=== PATIENT | female | born 1945 | race Caucasian/White ===

== ENCOUNTER 2019-06-03 14:28 | Emergency (ER) | payer OTHER ==
--- NOTE | ~2019-06-03 | CN ---
PATIENT NAME:MILAGROS WASHINGTON MEDICAL RECORD: [id number] : 43 LOCATION:[facility] ADMIT DATE: ACCOUNT: [id number] CONSULTING PHYSICIAN: KAJAL ABRAHAM MD REFERRING PHYSICIAN: TOM LUCIO MD DATE OF CONSULTATION: 06/03/2019 HISTORY OF PRESENT ILLNESS: Ms. Washington is a 74-year-old female about 2-1/2 hours status post a fall onto a brick surface. I was called. She had a CT sustained a large right facial laceration on the right eye and an open right orbital fracture, all that was visualized on the CT was some subcutaneous air. On talking to the patient, really does not have much complaints. She says it was hurting earlier, but the pain has gone away. No visual problems. She can still open her eyes spontaneously, looking at her, had to look in to all different gaze, her vision is normal and no double vision in any field of gaze. No problems with her occlusion or with her teeth. No nasal obstruction or epistaxis, just the right cheek swelling and some pain. PAST MEDICAL HISTORY: Reviewed from the chart. PHYSICAL EXAMINATION: GENERAL: She has a right periorbital ecchymosis. HEENT: Eye is swollen just about shut, but she can with a little help open it up, so I can see her pupil, sclerae, and conjunctivae are normal. Pupils are equal and reactive. She has grossly normal vision, did not feel there is any abnormality. Extraocular movements are intact. No diplopia in any field of gaze. On palpation of her face, everything is normal in nose. The midface is stable. She has got tenderness on the lateral orbital rim on the right side. She had a large wide open laceration under the right eye with malar prominence in the inferior lateral orbital rim exposed. The facial nerve function is intact. EARS: Canals and TMs are normal. NOSE: No mass, polyps or drainage. Septum is intact, relatively straight. No hematoma. ORAL CAVITY AND OROPHARYNX: Does not have any trismus. Midface is stable. Jaw opens symmetrically. NECK: No masses, no adenopathy. I reviewed her CT and she has got this fracture. The orbital flow is intact though, just a little slightly depressed lateral orbital rim fracture with a couple of bone fragments there. The air is just from the lateral laceration. There is no obvious communication to the sinus tract. This is just lateral orbit and orbital contents and globe appear normal. I do not see any other fractures. PROCEDURE: Repair of the laceration, cleaned the area with Betadine and irrigated it out, palpated it carefully for any foreign bodies. It was all clean. The orbital rim felt intact. Really could not feel there was bone fragments there on the medial surface of the orbit, I did not generally explore that. They are not obviously causing any problem. I closed the wound interruptedly with subcutaneous 3-0 Vicryl deep and then the subcutaneous layers were closed with interrupted subcutaneous 5-0 Vicryl and the skin was closed with a combination of running and interrupted 5-0 Prolene. She tolerated all that well. CONSULT REPORT [id number] MILAGROS WASHINGTON IMPRESSION: Right facial laceration repaired and right orbital fracture, it is minimal. She got some bone fragments, but it does not appear to be giving her any trouble, the floor is intact. I do not think this is going to need surgical treatment. She will see me back in the clinic in 1 week for suture removal. She has already received some IV antibiotics, she can get some Keflex p.o. until then and she has a wrist fracture and it needs to be taken care of as well. The ER is arranging that and I will check her eye again next week when she is in. TRANSINT:[id number] Voice Confirmation ID: [id number] DOCUMENT ID: [id number] KAJAL ABRAHAM MD CC: [id number] DICTATION DATE: 06/03/19 175 HOME MANAGER: 06/04/19 0204 [facility] 06/03/19 [facility] [address] [place] [address]
[2019-06-03 14:31] VITALS: Wt 72.7 kg
[2019-06-03 15:47] LABS: BASOPHILS 0.2 % (0-2); EOSINOPHILS 1.4 % (0-7); HEMATOCRIT 37.8 % (36.0-48.0); HEMOGLOBIN 12.8 g/dL (12-16); IMMATURE GRANULOCYTES 0.2 % (0-5); LYMPHOCYTES 16.9 % (15-50); MCH 33.4 pg (26.0-34.0); MCHC 33.9 g/dL (31.0-37.0); MCV 98.7 fL (80.0-100.0); MEAN PLATELET VOLUME 9.6 fL (7.4-10.4); MONOCYTES 9.8 % (2-11); NEUTROPHILS 71.5 % (40-80); PLATELET COUNT 202 10x3/uL (130-400); RBC 3.83 10x6/uL (4.00-5.40); RDW 12.5 % (11.5-14.5); WBC 4.9 10x3/uL (4.8-10.8)
[2019-06-03 15:57] LABS: APTT 27.8 SECONDS (22.8-39.4); CALC OSMOLALITY 285 mosm/kg (275-300); CARBON DIOXIDE 32.2 mmol/L (21.0-32.0); CHLORIDE - SERUM 104 mmol/L (98-107); CREATININE - SERUM 0.7 mg/dL (0.6-1.3); GLUCOSE 112 mg/dL (74-106); INR 0.9 (0.85-1.17); PROTIME 12.1 SECONDS (11.6-15.0); SODIUM 142 mmol/L (136-145); UREA NITROGEN 17 mg/dL (7-18); eGFR NON AFRICAN AMERICAN 86 mL/min (90-120)
[2019-06-03 16:03] LABS: ALBUMIN 3.4 g/dL (3.4-5.0); ALKALINE PHOSPHATASE 60 U/L (46-116); ALT (SGPT) 26 U/L (10-68); BILIRUBIN - TOTAL 0.28 mg/dL (0.2-1.3); PROTEIN - SERUM 6.7 g/dL (6.4-8.2)
[2019-06-03 17:19] LABS: APPEARANCE CLEAR (CLEAR); BILIRUBIN NEGATIVE (NEGATIVE); COLOR YELLOW (YELLOW); GLUCOSE NEGATIVE (NEGATIVE); KETONE SMALL mg/dL (NEGATIVE); NITRITE NEGATIVE (NEGATIVE); PROTEIN NEGATIVE (NEGATIVE); UROBILINOGEN NORMAL (NORMAL)
[2019-06-03 17:20] LABS: BACTERIA FEW /hpf (NEGATIVE); EPITHELIAL CELLS 0-5 /hpf (0-5); RED CELLS - URINE 0-5 /hpf (0-5); WHITE CELLS - URINE 0-5 /hpf (NEGATIVE)
[2019-06-03] MEDS ORDERED: KEFLEX500 MG PO (17:34)
[2019-06-03] MEDS ORDERED: TORADOL10 MG PO (17:34)
[2019-06-03 18:17] VITALS: BP 158/74
== END 2019-06-03 18:18 | disposition home or self-care (01) ==
LOC: D.ER 14:28
PROVIDERS: Emergency Medicine
DX: S02.841 Fracture of lateral orbital wall, right side (principal); S52.501A Unspecified fracture of the lower end of right radius, initial encounter for closed fracture; W10.9XXA Fall (on) (from) unspecified stairs and steps, initial encounter; I10 Essential (primary) hypertension

== ENCOUNTER 2020-01-13 15:14 | Emergency (ER) | payer OTHER ==
[~2020-01-13] VITALS: Ht 167.6 cm; Wt 72.7 kg
[~2020-01-13 15:14] MED LIST: KEFLEX500 MG PO; TORADOL10 MG PO
[2020-01-13 15:24] VITALS: Ht 167.6 cm; Wt 72.7 kg
[2020-01-13 16:24] LABS: BASOPHILS 0.6 % (0-2); EOSINOPHILS 2.5 % (0-7); HEMATOCRIT 39.8 % (36.0-48.0); HEMOGLOBIN 13.4 g/dL (12-16); LYMPHOCYTES 30.9 % (15-50); MCH 33.3 pg (26.0-34.0); MCHC 33.7 g/dL (31.0-37.0); MCV 98.8 fL (80.0-100.0); MEAN PLATELET VOLUME 10.1 fL (7.4-10.4); MONOCYTES 11.1 % (2-11); NEUTROPHILS 54.9 % (40-80); PLATELET COUNT 172 10x3/uL (130-400); RBC 4.03 10x6/uL (4.00-5.40); RDW 12.8 % (11.5-14.5); WBC 3.1 10x3/uL (4.8-10.8)
[2020-01-13 16:32] LABS: CALC OSMOLALITY 276 mosm/kg (275-300); CALCIUM 9.2 mg/dL (8.5-10.1); CARBON DIOXIDE 31.2 mmol/L (21.0-32.0); CHLORIDE - SERUM 102 mmol/L (98-107); CREATININE - SERUM 0.8 mg/dL (0.6-1.3); GLUCOSE 98 mg/dL (74-106); POTASSIUM - SERUM 3.6 mmol/L (3.5-5.1); SODIUM 138 mmol/L (136-145); UREA NITROGEN 16 mg/dL (7-18); eGFR NON AFRICAN AMERICAN 74 mL/min (90-120)
[2020-01-13 16:42] LABS: APTT 29.6 SECONDS (22.8-39.4); INR 0.94 (0.85-1.17); PROTIME 12.5 SECONDS (11.6-15.0)
[2020-01-13 16:49] LABS: ALBUMIN 3.8 g/dL (3.4-5.0); ALKALINE PHOSPHATASE 45 U/L (30-120); ALT (SGPT) 26 U/L (10-68); BILIRUBIN - TOTAL 0.32 mg/dL (0.2-1.3); CKMB 2.5 U/L (0.0-3.6); CREATINE KINASE 158 UL (21-215); MAGNESIUM - SERUM 2.3 mg/dL (1.8-2.4); PROTEIN - SERUM 7.2 g/dL (6.4-8.2); TROPONIN-I < 0.017 ng/mL (0.000-0.060)
[2020-01-13 20:44] VITALS: BP 173/84
== END 2020-01-13 20:34 | disposition home or self-care (01) ==
LOC: D.ER 15:14
PROVIDERS: Emergency Medicine
DX: R07.89 Other chest pain (principal); R42 Dizziness and giddiness